=== PATIENT | female | born 1970 | race Caucasian/White ===

== ENCOUNTER 2020-04-27 04:43 | Day surgery (SDC) | payer BC ==
[2020-04-26 13:21] VITALS: BMI 34.1
[2020-04-27] MEDS ORDERED: MIDAZOLAM HCL 2 MG/2 ML SINGLE DOSE VIAL ONE (14:02)
[2020-04-27] MEDS ORDERED: PROPOFOL 20 ML ONE (14:02)
--- NOTE | 2020-04-27 14:21 | HP ---
History & Physical Update - History History: No Change - Physical Physical: No Change - Assessment Assessment: No Change - Plan Plan: No Change (H&P reviwed , no changes , for hysteroscopy, D&C , polypectomy, possible submucos myoma resection)
[2020-04-27] MEDS ORDERED: LIDOCAINE HCL/PF 2% SDV 5ML VIAL ONE (14:26)
[2020-04-27] MEDS ORDERED: ePHEDrine SULFATE 50 MG/1 ML AMPULE ONE (14:38)
[2020-04-27] MEDS ORDERED: DEXAMETHASONE SOD PHOSPHATE 4 MG/1 ML VIAL ONE (14:39)
[2020-04-27] MEDS ORDERED: ONDANSETRON 4 MG/2 ML VIAL IVPUSH PRN ×2 (15:07→15:22)
[2020-04-27] MEDS ORDERED: oxyCODONE HCL 5 MG TABLET PO PRN ×2 (15:07→15:22)
[2020-04-27] MEDS ORDERED: ACETAMINOPHEN 1000 MG/100 ML VIAL (NON FORMULARY) IVPB ONE (15:07)
[2020-04-27] MEDS ORDERED: LACTATED RINGERS SOLUTION 1,000 ML IV SCH (15:15)
[2020-04-27] MEDS ORDERED: IBUPROFEN 800 MG/8 ML IJ IVPB PRN (15:22)
[2020-04-27] MEDS ORDERED: IBUPROFEN 600 MG TABLET (FP) PO PRN (15:22)
--- NOTE | 2020-04-27 15:22 | OP ---
Operative Note - Note: Operative Date: 04/27/20 Pre-Operative Diagnosis: EM polyp, irregular EM Operation: hysteroscopy , D&C, polypecyomy Findings: irregular ,thicken EM, EM polyp Surgeon: Joel Rabago Anesthesia: General Estimated Blood Loss (mls): 25 Drains & Tubes with Location: none Blood Volume Replaced (mls): 0 Operative Report Dictated: Yes
[2020-04-27] MEDS ORDERED: ELECTROLYTE-148 SOLN 1,000 ML IV SCH (15:30)
[2020-04-27] MEDS ORDERED: ACETAMINOPHEN INJECTION 100 ML IVPB ONE (16:08)
[2020-04-27 16:54] VITALS: TEMP 97.7
[2020-04-27 17:28] VITALS: BP 125/74; PULSE 77
--- NOTE | 2020-04-29 21:35 | OP ---
DATE OF OPERATION: 04/27/2020 PREOPERATIVE DIAGNOSES: Irregular menstrual cycle, endometrial polyp. POSTOPERATIVE DIAGNOSES: Irregular menstrual cycle, endometrial polyp. PROCEDURE: Hysteroscopy, dilatation and curettage, and polypectomy. SURGEON: Joel Rabago MD ANESTHESIA: General. ESTIMATED BLOOD LOSS: 25 mL. DESCRIPTION OF OPERATION: Patient was taken to the operating room, had adequate general anesthesia in dorsal lithotomy position. An examination under anesthesia revealed external genitalia to be normal. Vagina was normal. Cervix was clean. No gross lesion. Uterus normal size. Adnexa: No masses were palpable. Then, with a weighted speculum in the vagina, anterior lip of the cervix was grasped with a single-tooth tenaculum. Uterine cavity was sounded to 8 cm. Then, cervix was slightly dilated with Hegar dilators, and then, Symphion hysteroscope was introduced. Visualization of endocervical canal appeared to be normal. Endometrium appeared to be irregular with thickened and patchy area. Both cornual regions were identified. No submucous myoma noted. There were several small polyps in the fundal area of the uterus. Then, the Symphion resectoscope was introduced, and the polyps were resected with the resectoscope and suctioned. Then, endometrium was curetted in pipe and tank fabricator fashion. Patient tolerated the procedure well, left the OR in good condition. JOEL RABAGO M.D. [id number]
--- NOTE | 2020-05-01 15:15 | PATH ---
Surgical Pathology Report Patient Name: DOMINGO ONEILL Med. Rec. #: [id number] /Age/Gender: 1970 (Age: 49) / F Account: [id number] Location: [facility] Taken: 04/27/2020 Received: 04/28/2020 Reported: 05/01/2020 Physicians: Joel Rabago M.D. Specimen(s) Received A: ENDOMETRIAL CURETTINGS B: ENDOMETRIAL POLYP Clinical History Unspecified ovarian cyst Final Diagnosis A. ENDOMETRIAL CURETTINGS, DILATION AND CURETTAGE: FRAGMENTS OF PROLIFERATIVE ENDOMETRIUM, BENIGN CERVICAL TISSUE WITH FOCAL ACUTE CERVICITIS, AND RARE FIBROMUSCULAR TISSUE. B. ENDOMETRIAL POLYP, DILATION AND CURETTAGE: POLYPOID FRAGMENTS OF PROLIFERATIVE ENDOMETRIUM SUGGESTIVE OF POLYP AND RARE FIBROMUSCULAR TISSUE. Electronically Signed Sho Bower M.D. Gross Description A. Received in formalin labeled "endometrial curettings," is a 2.1 x 2.0 x 0.2 cm aggregate of alfred-brown soft tissue fragments. The formalin is filtered and the specimen is entirely submitted in one cassette. B. Received in formalin labeled "endometrial polyp," is a 2.0 x 1.5 x 0.2 cm aggregate of alfred-martinez soft tissue fragments. The formalin is filtered and the specimen is entirely submitted in one cassette. /04/28/2020 saudi/04/28/2020
== END 2020-04-27 17:29 | disposition home or self-care (01) ==
LOC: JASU-SURG 04:43
PROVIDERS: ATTEND Obstetrics & Gynecology
PROC: 0UJD8ZZ Inspection of Uterus and Cervix, Via Natural or Artificial Opening Endoscopic (ICD-10-PCS; 2020-04-27)
PROC: 0UB97ZX Excision of Uterus, Via Natural or Artificial Opening, Diagnostic (ICD-10-PCS; principal; 2020-04-27 14:00)
PROC: 0UDB7ZX Extraction of Endometrium, Via Natural or Artificial Opening, Diagnostic (ICD-10-PCS; 2020-04-27 14:00)
DX: N93.8 Other specified abnormal uterine and vaginal bleeding (principal); N84.0 Polyp of corpus uteri
CPT/HCPCS: 81025; 84703; 88305-TC; 94760; J0131

== ENCOUNTER 2020-07-04 06:07 | Day surgery (SDC) | payer BC ==
[2020-06-27 14:48] VITALS: BMI 38.4
[2020-07-04 11:03] VITALS: TEMP 97.7
[2020-07-04 11:25] VITALS: PULSE 56
[2020-07-04 11:54] VITALS: BP 120/67
== END 2020-07-04 12:04 | disposition home or self-care (01) ==
LOC: JASU-ENDO 06:07
PROVIDERS: ATTEND Internal Medicine Gastroenterology
PROC: 0DBF8ZX Excision of Right Large Intestine, Via Natural or Artificial Opening Endoscopic, Diagnostic (ICD-10-PCS; 2020-07-04)
PROC: 0DBP8ZX Excision of Rectum, Via Natural or Artificial Opening Endoscopic, Diagnostic (ICD-10-PCS; principal; 2020-07-04 11:00)
DX: Z12.11 Encounter for screening for malignant neoplasm of colon (principal); D12.6 Benign neoplasm of colon, unspecified; K62.1 Rectal polyp; K64.8 Other hemorrhoids
CPT/HCPCS: 81025; 88305-TC

== ENCOUNTER 2022-01-15 04:20 | Day surgery (SDC) | payer OTHER ==
[2022-01-11 17:43] VITALS: BMI 36.6
[2022-01-15] MEDS ORDERED: LIDOCAINE HCL 2% 100 MG/5 ML DISP.SYRIN ONE (10:21)
[2022-01-15] MEDS ORDERED: PROPOFOL 20 ML ONE (10:21)
[2022-01-15] MEDS ORDERED: KETOROLAC TROMETHAMINE 30 MG/1 ML VIAL ONE (10:21)
[2022-01-15] MEDS ORDERED: DEXAMETHASONE SOD PHOSPHATE 4 MG/1 ML VIAL ONE (10:21)
[2022-01-15] MEDS ORDERED: MIDAZOLAM HCL 2 MG/2 ML SINGLE DOSE VIAL ONE (10:22)
[2022-01-15] MEDS ORDERED: ONDANSETRON 4 MG/2 ML VIAL IVPUSH PRN (11:18)
[2022-01-15] MEDS ORDERED: oxyCODONE HCL 5 MG TABLET PO PRN ×2 (11:18)
[2022-01-15] MEDS ORDERED: LACTATED RINGERS SOLUTION 1,000 ML IV SCH (11:30)
[2022-01-15 17:39] VITALS: BP 108/79; PULSE 79; TEMP 98.7
== END 2022-01-15 16:30 | disposition home or self-care (01) ==
LOC: JASU-SURG 04:20
PROVIDERS: ATTEND Obstetrics & Gynecology
PROC: 0UDB7ZZ Extraction of Endometrium, Via Natural or Artificial Opening (ICD-10-PCS; 2022-01-15)
PROC: 0UB98ZX Excision of Uterus, Via Natural or Artificial Opening Endoscopic, Diagnostic (ICD-10-PCS; principal; 2022-01-15 10:30)
DX: N92.1 Excessive and frequent menstruation with irregular cycle (principal)
CPT/HCPCS: 81025; 88305-TC; 94760

== ENCOUNTER 2022-02-05 05:05 | Day surgery (SDC) | payer OTHER ==
[2022-01-30 11:40] VITALS: BMI 39.8
== END 2022-02-05 11:10 | disposition still patient (30) ==
LOC: JASU-ENDO 05:05
PROVIDERS: ATTEND Internal Medicine Gastroenterology
DX: Z53.8 Procedure and treatment not carried out for other reasons (principal)
CPT/HCPCS: 81025

== ENCOUNTER 2022-02-05 12:14 | Emergency (ER) | payer OTHER ==
[2022-02-05 12:37] VITALS: TEMP 98.6; BMI 38.2
[2022-02-05 14:18] LABS: BASO % 1.2 % (0-2.0); EOS % 4.2 % (0-4.5); HEMATOCRIT 29.6 % (32.4-45.2); HEMOGLOBIN 9.8 GM/dL (10.7-15.3); LYMPH % 26.9 % (8-40); MCH 30.2 pg (25.7-33.7); MCHC 33.1 g/dl (32.0-36.0); MEAN CELL VOLUME 91.2 fl (80-96); MONO % 11.7 % (3.8-10.2); PLATELET COUNT 245 10^3/uL (134-434); RBC 3.25 M/mm3 (3.60-5.2); RDW 14.3 % (11.6-15.6); WHITE BLOOD COUNT 4.3 K/mm3 (4.0-10.0)
[2022-02-05 14:37] LABS: BLOOD UREA NITROGEN 16.8 mg/dL (7-18); CALCIUM 8.5 mg/dL (8.5-10.1)
[2022-02-05 14:38] LABS: ALBUMIN 3.6 g/dl (3.4-5.0)
[2022-02-05 14:41] LABS: CREATININE 0.5 mg/dL (0.55-1.3)
[2022-02-05 14:42] LABS: BILIRUBIN,TOTAL 0.6 mg/dL (0.2-1)
[2022-02-05] MEDS ORDERED: FLUCONAZOLE 150 MG TABLET PO ONE ×2 (15:28→15:34)
[2022-02-05 15:52] VITALS: BP 124/85; PULSE 72
== END 2022-02-05 16:06 | disposition home or self-care (01) ==
LOC: JER 12:14
DX: R07.9 Chest pain, unspecified (principal)
CPT/HCPCS: 36415; 71046-TC-FY; 80053; 84443; 84484; 85025; 93005; 93010; 99285-25; C9803-CS; U0003; U0005

== ENCOUNTER 2023-01-30 05:22 | Day surgery (SDC) | payer OTHER ==
[2023-01-28 15:21] VITALS: BMI 40.1
[2023-01-30] MEDS ORDERED: FENTANYL CITRATE/PF 50 MCG/ML VIAL ONE (08:48)
[2023-01-30 10:13] VITALS: BP 110/69; PULSE 67; RESP 18; TEMP 98
== END 2023-01-30 11:45 | disposition home or self-care (01) ==
LOC: JASU-ENDO 05:22
PROVIDERS: ATTEND Internal Medicine Gastroenterology
PROC: 0DB78ZX Excision of Stomach, Pylorus, Via Natural or Artificial Opening Endoscopic, Diagnostic (ICD-10-PCS; 2023-01-30)
PROC: 0DB68ZX Excision of Stomach, Via Natural or Artificial Opening Endoscopic, Diagnostic (ICD-10-PCS; principal; 2023-01-30 09:00)
DX: K29.50 Unspecified chronic gastritis without bleeding (principal); B96.81 Helicobacter pylori [H. pylori] as the cause of diseases classified elsewhere
CPT/HCPCS: 81025; 88342-TC

== ENCOUNTER 2024-08-25 04:14 | Day surgery (SDC) | payer OTHER ==
[2024-08-20 11:28] VITALS: BMI 41.1
[2024-08-25] MEDS ORDERED: MIDAZOLAM HCL 2 MG/2 ML SINGLE DOSE VIAL ONE (07:09)
[2024-08-25] MEDS ORDERED: ROCURONIUM BROMIDE 50 MG/5 ML SYRINGE ONE (07:14)
[2024-08-25] MEDS ORDERED: PROPOFOL 40 ML ONE (07:14)
[2024-08-25] MEDS ORDERED: LIDOCAINE HCL/PF 2% SDV 5ML VIAL ONE (07:14)
[2024-08-25] MEDS: ceFAZolin SODIUM 1 GM VIAL IVPB ONE (08:27)
[2024-08-25] MEDS ORDERED: ceFAZolin SODIUM 1 GM VIAL ONE ×2 (08:29→14:25)
[2024-08-25] MEDS ORDERED: HYDROmorphone HCl 2 MG/ML VIAL ONE (08:36)
[2024-08-25] MEDS ORDERED: ONDANSETRON 4 MG/2 ML VIAL IVPUSH PRN (08:46)
[2024-08-25] MEDS: [UNRECOGNIZED DRUG - OTHER] INF ONE (08:49)
[2024-08-25] MEDS ORDERED: ACETAMINOPHEN INJECTION 100 ML ONE (09:39)
[2024-08-25] MEDS ORDERED: KETOROLAC TROMETHAMINE 30 MG/1 ML VIAL ONE ×2 (10:00→15:21)
[2024-08-25] MEDS ORDERED: ONDANSETRON 4 MG/2 ML VIAL ONE (10:00)
[2024-08-25] MEDS ORDERED: DEXAMETHASONE SOD PHOSPHATE 4 MG/1 ML VIAL ONE (10:00)
[2024-08-25] MEDS ORDERED: SUGAMMADEX SODIUM 200 MG/2 ML VIAL ONE (10:03)
[2024-08-25] MEDS ORDERED: TRANEXAMIC ACID 1000 MG/10 ML VIAL ONE (10:58)
[2024-08-25] MEDS: CEFAZOLIN 2 GM in DEXTROSE 5%-WATER - 100 ML IVPB ONE (11:02)
[2024-08-25] MEDS: TRANEXAMIC ACID 1000 MG/10 ML VIAL IVPUSH ONE (11:02)
[2024-08-25] MEDS: ACETAMINOPHEN 1000 MG/100 ML BAG IVPB ONE (11:03)
[2024-08-25] MEDS: CEFAZOLIN 2 GM/D5W 2 GM/50 ML ML IVPB ONE (14:37)
[2024-08-25] MEDS ORDERED: oxyCODONE HCL 5 MG TABLET ONE (15:21)
[2024-08-25] MEDS: oxyCODONE HCL 5 MG TABLET PO PRN (15:22)
[2024-08-25] MEDS: KETOROLAC TROMETHAMINE 30 MG/1 ML VIAL IVPUSH PRN (15:23)
[2024-08-25 16:20] VITALS: RESP 20; TEMP 97.2
[2024-08-25 16:23] VITALS: BP 137/63; PULSE 88
== END 2024-08-25 15:41 | disposition home or self-care (01) ==
LOC: JASU-SURG 04:14
PROVIDERS: ATTEND Specialist
PROC: 0UT74ZZ Resection of Bilateral Fallopian Tubes, Percutaneous Endoscopic Approach (ICD-10-PCS; 2024-08-25)
PROC: 0UT04ZZ Resection of Right Ovary, Percutaneous Endoscopic Approach (ICD-10-PCS; 2024-08-25)
PROC: 8E0W4CZ Robotic Assisted Procedure of Trunk Region, Percutaneous Endoscopic Approach (ICD-10-PCS; principal; 2024-08-25 08:00)
PROC: 0UT94ZZ Resection of Uterus, Percutaneous Endoscopic Approach (ICD-10-PCS; 2024-08-25 08:00)
DX: N80.03 Adenomyosis of the uterus (principal); N81.5 Vaginal enterocele; N72 Inflammatory disease of cervix uteri; N83.8 Other noninflammatory disorders of ovary, fallopian tube and broad ligament
CPT/HCPCS: 57268; 58571; S2900; 81025; 88302-TC; 88305-TC; 94760; 97116-GP; J0131

== ENCOUNTER → 2025-01-07 | Day surgery (SDC) | payer OTHER ==
[2025-01-04 11:07] VITALS: BMI 42.0
[~2025-01-07] MED LIST: ACETAMINOPHEN 500 MG TABLET (FP) PO PRN; TRIAMCINOLONE ACET 40MG/1ML VIAL ONE
[2025-01-07 08:13] VITALS: TEMP 98.1
[2025-01-07] MEDS: LIDOCAINE HCL 1% PRESERVATIVE FREE - 30ML VIAL IJ ONE (09:33)
[2025-01-07] MEDS: BUPIVACAINE HCL/PF 0.75% 10 ML VIAL CAUD ONE (09:37)
[2025-01-07 10:08] VITALS: BP 132/79; PULSE 67; RESP 20
== END | disposition home or self-care (01) ==
LOC: JASU-SURG 07:11
PROVIDERS: ATTEND Pain Medicine Pain Medicine
PROC: 3E0T3BZ Introduction of Anesthetic Agent into Peripheral Nerves and Plexi, Percutaneous Approach (ICD-10-PCS; principal; 2025-01-07 10:00)
DX: M47.816 Spondylosis without myelopathy or radiculopathy, lumbar region (principal)
CPT/HCPCS: 76000-TC-FY